=== PATIENT | male | born 1980 | race Caucasian/White ===

== ENCOUNTER 2019-02-17 08:50 | Emergency (ER) | payer MEDICAID ==
[~2019-02-17] VITALS: Ht 160 cm; Wt 76.0 kg
[2019-02-17 08:57] VITALS: BP 119/69; PULSE 73; RESP 18; Ht 160 cm; Wt 76.0 kg
[2019-02-17] MEDS ORDERED: FLUORESCEIN STRIP RIGHT EYE ONE (09:30)
[2019-02-17] MEDS ORDERED: TETRACAINE 0.5% 4 ML OPH RIGHT EYE ONE (09:30)
[2019-02-17] MEDS ORDERED: OFLO5DRO46 LEFT EYE (09:51)
--- NOTE | 2019-02-17 14:52 | ERD ---
ER Documentation Chief Complaint Chief Complaint LEFT EYE REDNESS/PAIN HPI 39-year-old male presenting with left eye irritation and redness. Patient stated last night in the when he felt something blow into his eye. He has been using ophthalmic drops with no alleviation. Head denies glasses or contacts use. Denies vision changes. Denies medical problems. NKDA. Surgical history denies. Social history denies ROS All systems reviewed and are negative except as per history of present illness. Medications Home Meds Active Scripts Ofloxacin* (Ocuflox*) 0.3%-5 Ml Ophth Drops, 1 DROP LEFT EYE QID, #1 BOTTLE Prov:DOM DEJESUS PA-C 02/17/19 Allergies Allergies: Coded Allergies: No Known Allergy (Unverified , 02/17/19) PMhx/Soc Medical and Surgical Hx: pt denies Medical Hx, pt denies Surgical Hx Hx Alcohol Use: No Hx Substance Use: No Hx Tobacco Use: No Smoking Status: Never smoker FmHx Family History: No diabetes, No coronary disease, No other Physical Exam Vitals Vital Signs Date Temp Pulse Resp B/P (MAP) Pulse Ox O2 O2 Flow FiO2 Time Delivery Rate 02/17/19 98.6 73 18 119/69 96 08:57 (86) Physical Exam GENERAL: The patient is well-appearing, well-nourished, in no acute distress HEENT: Atraumatic. Conjunctivae are pink. Pupils equal, round, and reactive to light. There is no scleral icterus. Tympanic membranes clear bilaterally. Oropharynx clear. NECK: C-spine is soft and supple. There is no meningismus. There is no cervical lymphadenopathy. CHEST: Clear to auscultation bilaterally. There are no rales, wheezes or rhonchi. HEART: Regular rate and rhythm. No murmurs, clicks, rubs or gallops. Results 24 hrs Current Medications Medications Dose Sig/Janice Start Time Status Last (Trade) Ordered Route PRN Stop Time Admin Dose Reason Admin Tetracaine 1 drop ONCE ONCE 02/17/19 DC HCl RIGHT EYE 09:30 (Tetracaine 02/17/19 09:31 0.5% Steri-Unit Nadia) Fluorescein 1 strip ONCE ONCE 02/17/19 DC Sodium RIGHT EYE 09:30 ([id number] 02/17/19 09:31 p) Procedures/MDM ER course: For seen stain performed in the ER. No abrasion or foreign body noted. Under the eye lid foreign body was noted and removed. MDM: 39-year-old male presenting with left eye irritation. Patient had a foreign body removed. He is recommended to continue using ofloxacin drops. I have low suspicion for visual deficit. I have low suspicion for retained foreign body. Patient is recommended to follow-up with primary care and return to the ER symptoms change or worsen. All questions answered at discharge Departure Diagnosis: Primary Impression: Foreign body Condition: Stable Patient Instructions: Foreign Object in the Cornea Referrals: [facility] YOU HAVE RECEIVED A MEDICAL SCREENING EXAM AND THE RESULTS INDICATE THAT YOU DO NOT HAVE A CONDITION THAT REQUIRES URGENT TREATMENT IN THE EMERGENCY DEPARTMENT. FURTHER EVALUATION AND TREATMENT OF YOUR CONDITION CAN WAIT UNTIL YOU ARE SEEN IN YOUR DOCTORS OFFICE WITHIN THE NEXT 1-2 DAYS. IT IS YOUR RESPONSIBILITY TO MAKE AN APPOINTMENT FOR FOLOW-UP CARE. IF YOU HAVE A PRIMARY DOCTOR --you should call your primary doctor and schedule an appointment IF YOU DO NOT HAVE A PRIMARY DOCTOR YOU CAN CALL OUR PHYSICIAN REFERRAL HOTLINE AT IF YOU CAN NOT AFFORD TO SEE A PHYSICIAN YOU CAN CHOSE FROM THE FOLLOWING [facility] [id number] [facility]. [facility] [address] [facility]. [facility] [address] [facility] [facility] [address] [facility]. [facility] [address] [facility] [facility]. [address] Additional Instructions: FOLLOW UP WITH YOUR PRIMARY CARE PHYSICIAN TOMORROW.Return to this facility if you are not improving as expected. DOM DEJESUS PA-C Feb 17, 2019 14:52
== END 2019-02-17 10:19 | disposition home or self-care (01) ==
LOC: FTE 08:50
DX: T15.12XA Foreign body in conjunctival sac, left eye, initial encounter (principal); X58.XXXA Exposure to other specified factors, initial encounter; Y92.9 Unspecified place or not applicable
CPT/HCPCS: Z7502; Z7610; 99283